=== PATIENT | male | born 1970 | race Caucasian/White ===

== ENCOUNTER → 2016-11-15 | Outpatient (CLI) | payer MEDICARE, OTHER ==
--- NOTE | 2016-11-16 07:05 | US ---
EXAMINATION TYPE: US kidneys/renal and bladder DATE OF EXAM: 11/15/2016 COMPARISON: NONE CLINICAL HISTORY: R31.9 Hematuria. EXAM MEASUREMENTS: Right Kidney: 12.7 x 6.2 x 5.8 cm Left Kidney: 12.8 x 5.7 x 5.4 cm Right Kidney: wnl Left Kidney: 2.4 x 2.2 x 2.4cm, simple appearing cyst. Bladder: wnl Neither ureteral jet was visualized. The right kidney is within normal limits. There is a 2.4 cm, simple appearing cyst in the left kidney . The bladder is unremarkable. Neither ureteral jet seen. IMPRESSION: SIMPLE APPEARING, 2.4 CM LEFT RENAL CYST.
== END | disposition home or self-care (01) ==
LOC: RADUSWWP 15:39
PROVIDERS: ATTEND Internal Medicine
DX: N28.1 Cyst of kidney, acquired (principal)
CPT/HCPCS: 76770

== ENCOUNTER → 2017-06-09 | Day surgery (SDC) | payer MEDICARE ==
[2017-06-07 15:28] VITALS: BMI 39.9
[~2017-06-09] MED LIST: LACTATED RINGERS 1,000 ML IV SCH; LIDOCAINE 1% 20 ML VIAL (10MG/ML) FOR IV START INTRADERMA PRN; PROPOFOL 10 MG/ML 20 ML VIAL IV ONE
[2017-06-09 10:09] VITALS: RESP 18; TEMP 97
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
--- NOTE | 2017-06-09 11:44 | P.OP ---
Date of Procedure: 06/09/17 Preoperative Diagnosis: GERD GI bleed Postoperative Diagnosis: Antral gastritis Internal and external hemorrhoids Anesthesia: MAC Surgeon: Flaco Richardson Pathology: other (Antrum, esophagus) Condition: stable Disposition: PACU Description of Procedure: Patient's placed on the endoscopy table in the lateral position. He received IV sedation. The gastroscope placed oropharynx passed in the esophagus and into the stomach. The scope was then placed through the pylorus. First and second portion duodenum appeared normal. The scope was then brought back the antrum this well. A biopsies performed. The scope was unretroflexed and remainder of the stomach appeared normal. The GE junction was at 47 is. There is no evidence of a hiatal hernia. The distal esophagus appeared minimally inflamed a biopsies performed. The proximal esophagus. Normal. Next digital rectal exam was performed which revealed internal and external hemorrhoids. Flexible colonoscope was then placed patient anus and passed throughout the entire colon. The ileocecal valve was visualized. Cecum, ascending transverse and descending and sigmoid colon appeared normal. Scope was then brought back the rectum and this appeared normal. Scope was then withdrawn from patient. In the internal and external hemorrhoids were noted. Scope was withdrawn for patient.
[2017-06-09 12:15] VITALS: BP 137/96; PULSE 82
== END ==
LOC: ORWHC2ENDO 09:44
PROVIDERS: ATTEND Surgery
DX: K29.50 Unspecified chronic gastritis without bleeding (principal); K21.0 Gastro-esophageal reflux disease with esophagitis; K64.8 Other hemorrhoids; K64.4 Residual hemorrhoidal skin tags; I10 Essential (primary) hypertension; E11.9 Type 2 diabetes mellitus without complications; Z79.84 Long term (current) use of oral hypoglycemic drugs; Z79.891 Long term (current) use of opiate analgesic; Z79.899 Other long term (current) drug therapy; Z88.7 Allergy status to serum and vaccine; Z91.018 Allergy to other foods
CPT/HCPCS: 88305; 88342; 45378; 43239; J2704

== ENCOUNTER 2017-06-11 18:13 | Emergency (ER) | payer MEDICARE ==
[2017-06-11 18:19] VITALS: BP 145/84; PULSE 118; RESP 20; TEMP 98.1
[2017-06-11] MEDS ORDERED: KETOROLAC 30 MG/ML 1 ML VIAL IM STA (19:04)
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
== END 2017-06-11 19:14 | disposition home or self-care (01) ==
LOC: EC 18:13
DX: K64.4 Residual hemorrhoidal skin tags (principal); K64.8 Other hemorrhoids; E11.9 Type 2 diabetes mellitus without complications; I10 Essential (primary) hypertension; Z79.84 Long term (current) use of oral hypoglycemic drugs; Z79.899 Other long term (current) drug therapy; Z91.018 Allergy to other foods
CPT/HCPCS: 99283; 96372; J1885

== ENCOUNTER → 2017-07-27 | Outpatient (CLI) | payer MEDICARE | END | disposition home or self-care (01) | LOC: LABPAT 16:47 | PROVIDERS: ATTEND Orthopaedic Surgery Hand Surgery | DX: Z01.810 Encounter for preprocedural cardiovascular examination (principal); I10 Essential (primary) hypertension; G56.02 Carpal tunnel syndrome, left upper limb | CPT/HCPCS: 93005 ==

== ENCOUNTER 2017-08-01 10:51 | Day surgery (SDC) | payer MEDICARE ==
[2017-07-27 15:25] VITALS: BMI 42.2
[~2017-08-01 10:51] MED LIST changes: +DEXAMETHASONE SOD PHOSPHATE 10 MG/ML 1 ML VIAL IV ONE; +MORPHINE SULFATE 2 MG/ML SYRINGE IV PRN; -PROPOFOL 10 MG/ML 20 ML VIAL IV ONE; +Pre Op ABX Message 1 EACH MISC MISCELLANE ONE
[2017-08-01 11:34] VITALS: RESP 16; TEMP 98.1
[2017-08-01 11:37] LABS: Glucose,Whole Blood 144 mg/dL (75-99)
[2017-08-01] MEDS ORDERED: MIDAZOLAM 2 MG/2 ML VIAL ONE (12:31)
[2017-08-01] MEDS ORDERED: fentaNYL (PF) 50 MCG/ML 2 ML AMP ONE (12:31)
[2017-08-01] MEDS ORDERED: PROPOFOL 10 MG/ML 20 ML VIAL IV ONE (12:31)
[2017-08-01] MEDS ORDERED: BUPIVACAINE (PF) 0.5% 30 ML VIAL SQ ONE (12:41)
[2017-08-01] MEDS ORDERED: LIDOCAINE 1% (PF) 10MG/ML VIAL SQ ONE (12:41)
[2017-08-01 12:58] VITALS: BP 124/69; PULSE 83
--- NOTE | 2017-08-02 10:09 | OP ---
OPERATIVE REPORT DATE OF SERVICE: 08/01/2017. PREOPERATIVE DIAGNOSIS: Left carpal tunnel syndrome. POSTOPERATIVE DIAGNOSIS: Left carpal tunnel syndrome. PROCEDURE: Left carpal tunnel release. DESCRIPTION OF PROCEDURE: The patient was taken to the Operative Suite where a sedation was administered by the Department of Anesthesia. I then performed a local injection along the line of the incision with a combination of Marcaine and Xylocaine both without epinephrine. The hand was then prepped and draped in the usual manner. The arm was elevated, exsanguinated and the cuff was inflated to 250 mm of mercury. A longitudinal incision was made along the ring finger ray distal to the wrist crease. Dissection was taken through the skin and subcutaneous tissue, initially sharp through the skin and then blunt through the subcutaneous tissue to ensure protection of any potential terminal transverse branches of the palmar cutaneous nerve. The palmar fascia was then incised under direct vision longitudinally exposing the transverse carpal ligament. The transverse carpal ligament also was incised under direct vision. The dissection was then continued proximally beneath the skin under direct vision to release the distal forearm fascia. The median nerve was then reflected free of tenosynovium to ensure no adhesions. The tourniquet was then released. The wound was then irrigated and the skin was closed with a running 5-0 nylon suture. A soft bulky dressing was applied including a volar plaster splint holding the wrist in a neutral slightly extended position. The patient was then taken to the Recovery Room in satisfactory condition. MARIA GUADALUPEL / IJN: [id number] /
== END 2017-08-01 13:51 | disposition home or self-care (01) ==
LOC: OR 10:51
PROVIDERS: ATTEND Orthopaedic Surgery Hand Surgery
DX: G56.02 Carpal tunnel syndrome, left upper limb (principal); I10 Essential (primary) hypertension; E10.9 Type 1 diabetes mellitus without complications; Z79.84 Long term (current) use of oral hypoglycemic drugs; Z79.891 Long term (current) use of opiate analgesic; Z79.899 Other long term (current) drug therapy; G47.33 Obstructive sleep apnea (adult) (pediatric); Z79.1 Long term (current) use of non-steroidal anti-inflammatories (NSAID); Z88.7 Allergy status to serum and vaccine
CPT/HCPCS: 64721; J2250; J3010; J2001; J2704

== ENCOUNTER → 2020-06-10 | Outpatient (CLI) | payer MEDICARE | END | disposition home or self-care (01) | LOC: LABWHC1 13:26 | PROVIDERS: ATTEND Surgery | DX: Z01.818 Encounter for other preprocedural examination (principal); U07.1 COVID-19; K42.9 Umbilical hernia without obstruction or gangrene; D17.9 Benign lipomatous neoplasm, unspecified | CPT/HCPCS: 93005; U0003; C9803; U0005; 86850; 86900; 86901 ==

== ENCOUNTER 2020-06-17 07:49 | Day surgery (SDC) | payer MEDICARE ==
[2020-06-10 15:19] VITALS: BMI 39.1
[~2020-06-17 07:49] MED LIST changes: -DEXAMETHASONE SOD PHOSPHATE 10 MG/ML 1 ML VIAL IV ONE; +DEXAMETHASONE SOD PHOSPHATE 4 MG/ML 1 ML VIAL IV ONE; +HEPARIN SODIUM,PORCINE 5,000 UNIT/ML 1 ML VIAL SQ PRN; +LIDOCAINE 1% (10MG/ML) FOR IV START INTRADERMA PRN; -LIDOCAINE 1% 20 ML VIAL (10MG/ML) FOR IV START INTRADERMA PRN; +MIDAZOLAM 2 MG/2 ML VIAL IV PRN; -MORPHINE SULFATE 2 MG/ML SYRINGE IV PRN; -Pre Op ABX Message 1 EACH MISC MISCELLANE ONE; +ceFAZolin 3 GM in SODIUM CHLORIDE 0.9% 100 ML IVPB PRN
[2020-06-17 08:24] LABS: Glucose,Whole Blood 116 mg/dL (75-99)
[2020-06-17] MEDS: ONDANSETRON 4 MG/2 ML VIAL IVP ONE ×2 (08:35→11:54)
[2020-06-17] MEDS ORDERED: fentaNYL (PF) 50 MCG/ML 2 ML AMP IV ONE (08:58)
[2020-06-17] MEDS ORDERED: MIDAZOLAM 2 MG/2 ML VIAL IV ONE (08:58)
--- NOTE | 2020-06-17 09:20 | P.ANPRN ---
Procedure Note - Anesthesia - Nerve Block Performed Bilateral Rectus Abdominis Single Time Out Performed: Yes Date of Procedure: 06/17/20 Procedure Start Time: 08:57 Procedure Stop Time: 09:09 Location of Patient: PreOp Indication: Requested by Surgeon Specifically requested for management of pain by DrLeonardo: Andrade French Sedation Type: Sedate with meaningful contact maintained Preparation: Sterile Prep Position: Supine Needle Types: Pajunk Needle Gauge: 21 Ultrasound used to visualize needle placement: Yes Ultrasound used to observe medication spread: Yes Injectate: 0.5% Ropivacaine (see comment for volume) (20 ml per side plus Dexamethasone 4 mg per side) Blood Aspirated: No Pain Paresthesia on Injection Noted: No Resistance on Injection: Normal Image Stored and Saved: Yes Events: Uneventful and Well Tolerated
[2020-06-17] MEDS ORDERED: GLYCOPYRROLATE 0.2 MG/ML 2 ML VIAL ONE (10:17)
[2020-06-17] MEDS ORDERED: NEOSTIGMINE 1 MG/ML 10 ML VIAL ONE (10:17)
[2020-06-17] MEDS ORDERED: ROCURONIUM 10 MG/ML (10 ML VIAL) IV ONE (10:17)
[2020-06-17] MEDS ORDERED: SUCCINYLCHOLINE CHLORIDE VIAL 200 MG/10 ML VIAL IV ONE (10:17)
[2020-06-17] MEDS ORDERED: PROPOFOL 10 MG/ML 20 ML VIAL IV ONE (10:17)
[2020-06-17] MEDS ORDERED: ROPIVACAINE 5 MG/ML 30 ML VIAL ONE (10:17)
[2020-06-17] MEDS ORDERED: fentaNYL (PF) 50 MCG/ML 2 ML AMP ONE (10:17)
[2020-06-17] MEDS ORDERED: DEXAMETHASONE SOD PHOSPHATE 4 MG/ML 1 ML VIAL ONE (10:17)
[2020-06-17] MEDS ORDERED: LIDOCAINE 1% INJ 10MG/ML (20 ML MDV) ONE (10:17)
[2020-06-17] MEDS ORDERED: KETOROLAC 15 MG/ML 1 ML VIAL ONE (10:17)
[2020-06-17] MEDS ORDERED: MIDAZOLAM 2 MG/2 ML VIAL ONE (10:17)
[2020-06-17] MEDS ORDERED: LIDOCAINE 1%-EPI 1:100,000 20 ML VIAL SQ ONE ×2 (10:43)
[2020-06-17] MEDS ORDERED: LACTATED RINGERS 1,000 ML IV ONE (11:00)
--- NOTE | 2020-06-17 11:28 | P.OP ---
Date of Procedure: 06/17/20 Preoperative Diagnosis: Umbilical hernia Postoperative Diagnosis: Umbilical hernia Procedure(s) Performed: Umbilical hernia repair with mesh, robotic Anesthesia: KHOA Surgeon: Andrade French Pathology: other (Hernia sac) Condition: stable Disposition: same day Indications for Procedure: 50-year-old male presents for elective hernia repair. He is noted to have an umbilical hernia that has begun causing symptoms. Secondary to this, plan is for robotic umbilical hernia repair. Risks, benefits and alternatives were provided to the patient. He did provide consent prior to attending the operating suite. Operative Findings: 2.5 cm umbilical hernia defect Description of Procedure: The patient was brought to the operating suite and placed in supine position. Gen. anesthesia with endotracheal intubation was performed as per anesthesia team. The right arm was tucked against the body and a footboard was applied. Patient was prepped and draped in regular sterile fashion. A timeout was performed to verify correct patient and correct procedure. Patient was confirmed to receive perioperative IV antibiotics, bilateral SCDs and 5000 units of subcutaneous heparin for VT prophylaxis. A 5 mm skin incision was made along the left midaxillary line at pal[place] point and the abdomen was entered under direct visualization using a Visiport. Pneumoperitoneum was achieved. The umbilical hernia was clearly visualized. An additional 8 mm trocar was placed in the left lower abdomen and a 12 mm trocar was placed in the left mid abdomen. The initial 5 mm trocar was upsized to an 8 mm trocar. The da [place] robot was undocked. A 30 robotic camera was used. A robotic prograsp and monopolar scissors were inserted through the 8 mm robotic trochars. The hernia defect contained preperitoneal fat and omentum which were reduced using gentle traction and countertraction method. The falciform ligament was divided using monopolar scissors close to the anterior abdominal wall to create a landing zone for the mesh. A [employer] system circular mesh was rolled and introduced in the abdominal cavity via the 12 mm trocar. The hernia defect was closed primarily with a running suture using OB lock by taking 1 cm bite on the fascia on either side of the defect. A Gaudencio Madrigal device was inserted through the middle of the hernia defect and the stay suture on the mesh was grasped to elevate the mesh against the anterior abdominal wall. The balloon was then inflated. The mesh was circumferentially sutured to the peritoneum of the anterior abdominal wall using 2 OB lock without any folds or kinks. The robot was then undocked. Laparoscopic 30 camera was reinserted. All trocar sites were examined. No evidence of bleeding. The 12 mm trocar site was closed using 2 transseptal sutures of 0 Vicryl which were placed using a Gaudencio Madrigal device. The pneumoperitoneum was evacuated and all skin incisions were closed using 4-0 Monocryl followed by Dermabond skin glue. The sponge, instrument and needle count were correct 2. Abdominal binder was applied. The patient was extubated and taken to postanesthesia care unit in stable condition.
[2020-06-17] MEDS: HYDROmorphone 0.5 MG/0.5 ML SYRINGE IVP PRN ×4 (11:47→12:04)
[2020-06-17 11:51] VITALS: TEMP 97.6
[2020-06-17 11:59] LABS: Glucose,Whole Blood 205 mg/dL (75-99)
[2020-06-17] MEDS: fentaNYL (PF) 50 MCG/ML 2 ML AMP IV PRN ×2 (12:09→12:14)
[2020-06-17 12:13] VITALS: RESP 16
[2020-06-17 13:04] LABS: Glucose,Whole Blood 169 mg/dL (75-99)
[2020-06-17] MEDS ORDERED: HYDROcodone/APAP 10-325MG 1 EACH TAB ONE (13:11)
[2020-06-17] MEDS ORDERED: HYDROcodone/APAP 10-325MG 1 EACH TAB PO ONE (13:20)
[2020-06-17 14:04] VITALS: BP 127/65; PULSE 97
== END 2020-06-17 14:31 | disposition home or self-care (01) ==
LOC: OR 07:49
PROVIDERS: ATTEND Surgery
DX: K42.9 Umbilical hernia without obstruction or gangrene (principal); D17.9 Benign lipomatous neoplasm, unspecified; E11.9 Type 2 diabetes mellitus without complications; I10 Essential (primary) hypertension; G47.33 Obstructive sleep apnea (adult) (pediatric); G89.29 Other chronic pain; M54.9 Dorsalgia, unspecified; E78.5 Hyperlipidemia, unspecified; Z98.890 Other specified postprocedural states; Z87.442 Personal history of urinary calculi; Z82.49 Family history of ischemic heart disease and other diseases of the circulatory system; Z81.8 Family history of other mental and behavioral disorders
CPT/HCPCS: 64488; 86900; 86901; 86850; 49652; C1781; J2250; J1644; J1100; J0690; J2405; J3010; J1170; 88302

== ENCOUNTER 2021-06-28 20:17 | Observation (INO) | payer MEDICARE ==
[2021-06-28] MEDS ORDERED: GLUCAGON 1 MG/ML VIAL IVP STA (20:48)
[2021-06-28] MEDS ORDERED: METOCLOPRAMIDE 5 MG/ML 2 ML VIAL IVP STA (20:48)
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
--- NOTE | 2021-06-28 21:25 | XR ---
EXAMINATION TYPE: XR soft tissue neck DATE OF EXAM: 06/28/2021 COMPARISON: NONE HISTORY: Foreign body TECHNIQUE: 2 views FINDINGS: Epiglottis is normal. Subglottic trachea appears normal. There is no evidence of radiopaque foreign body. Adenoids appear normal. Cervical vertebra show some degenerative spurring at C5-6. IMPRESSION: Negative cervical soft tissue exam.
[2021-06-28] MEDS ORDERED: DIAZEPAM 5 MG/ML 2 ML INJ IVP STA (21:42)
[2021-06-29] MEDS ORDERED: NALOXONE 0.4 MG/ML 1 ML VIAL IV PRN (00:31)
[2021-06-29] MEDS ORDERED: SODIUM CHLORIDE 0.9% 1,000 ML IV SCH (00:45)
[2021-06-29] MEDS: DIAZEPAM 5 MG/ML 2 ML INJ IVP SCH ×3 (01:58→17:12)
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
[2021-06-29 07:58] LABS: Glucose,Whole Blood 140 mg/dL (75-99)
[2021-06-29] MEDS: METOCLOPRAMIDE 5 MG/ML 2 ML VIAL IVP SCH ×2 (08:00→17:12)
[2021-06-29] MEDS: HEPARIN SODIUM,PORCINE/PF 5,000 UNIT/0.5 ML SYRINGE SQ SCH ×2 (08:00→17:13)
[2021-06-29] MEDS: INSULIN ASPART (NovoLOG) 100 UNIT/ML VIAL SQ SCH ×2 (08:54→17:13)
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
[2021-06-29 12:00] LABS: Glucose,Whole Blood 118 mg/dL (75-99)
[2021-06-29 12:01] LABS: HCT 51.3 % (39.0-53.0); HGB 16.9 gm/dL (13.0-17.5); MCH 29.8 pg (25.0-35.0); MCHC 32.9 g/dL (31.0-37.0); MCV 90.7 fL (80.0-100.0); Mean Platelet Volume 8.2; Platelet Count 198 k/uL (150-450); RBC 5.66 m/uL (4.30-5.90); WBC 9.3 k/uL (3.8-10.6)
[2021-06-29 12:10] LABS: African American GFR (CKD) >90 (>60 ml/min/1.73 sqM); Anion Gap 7 mmol/L; Blood Urea Nitrogen 16 mg/dL (9-20); Calcium 9.3 mg/dL (8.4-10.2); Carbon Dioxide 28 mmol/L (22-30); Chloride 104 mmol/L (98-107); Glucose 139 mg/dL (74-99); Non-African American GFR(CKD) >90 (>60 ml/min/1.73 sqM); Potassium 4.6 mmol/L (3.5-5.1); Sodium 139 mmol/L (137-145)
[2021-06-29] MEDS ORDERED: IV FLUID CONTINUATION 1,000 ML IV ONE ×2 (13:52)
[2021-06-29] MEDS ORDERED: MIDAZOLAM 2 MG/2 ML VIAL ONE (14:13)
[2021-06-29] MEDS ORDERED: LIDOCAINE 1% INJ 10MG/ML (20 ML MDV) ONE (14:13)
[2021-06-29] MEDS ORDERED: fentaNYL (PF) 50 MCG/ML 2 ML AMP ONE (14:13)
[2021-06-29] MEDS ORDERED: PROPOFOL 10 MG/ML 20 ML VIAL IV ONE (14:13)
[2021-06-29] MEDS ORDERED: SUCCINYLCHOLINE CHLORIDE 100 MG/5 ML SYR IV ONE (14:13)
--- NOTE | 2021-06-29 14:57 | P.PCN ---
Date of Procedure: 06/29/21 Implants: BRIEF HISTORY: Patient is a 51-year-old, pleasant, white male admitted hospital last night after presenting with acute food impaction. He never and the symptoms in the past. However he is been having intermittent dysphagia to solids for the last few years. He denies any heartburn. PROCEDURE PERFORMED: Esophagogastroduodenoscopy with foreign body removal and biopsy. PREOPERATIVE DIAGNOSIS: Acute food impaction. Anesthesia general anesthesia PROCEDURE: After informed consent was obtained, the patient was brought into the endoscopy unit. IV sedation was administered by Anesthesia under continuous monitoring. Initially the Olympus GIF-140 video endoscope was inserted into the mouth. Esophagus intubated without any difficulty. It was gradually advanced into the distal esophagus and there was a large piece of meat that was impacted in the distal esophagus. Gentle using a snare, rat-tooth and tripod the piece of meat was removed and small pieces and subsequently the rest of it was pushed into the stomach. The scope was advanced into the duodenum and carefully examined. The bulb and the second part of the duodenum appeared normal. The scope at this time was withdrawn to the stomach, adequately insufflated with air, and upon careful examination, mucosa of the antrum, body, cardia and the fundus appeared normal. The scope was then withdrawn into the esophagus. The GE junction was located at 39 cm from the incisors. small hiatal hernia noted. Then the length of esophagus had thickened esophageal folds with multiple mucosal rings and slight narrowing of the esophagus especially in the distal esophagus consistent with the use of esophagitis and multiple biopsies were done from this area. The patient tolerated the procedure well. . IMPRESSION: 1. Large piece of meat lost in the distal esophagus status post removal with snare, tripod and rectum. 2. Multiple superficial mucosal rings with thickened esophageal folds and esophagus stricture in the mid and distal esophagus consistent with years of age esophagitis status post multiple biopsies. RECOMMENDATIONS: The findings of this examination were discussed with the patient . He was started on clear liquid diet today. He was tolerating well he can be discharged home today with outpatient follow-up in one to 2 weeks. He'll be started on Prilosec 20 mg twice daily..
[2021-06-29 16:05] VITALS: TEMP 97.8
[2021-06-29 17:04] VITALS: PULSE 84; RESP 16
--- NOTE | 2021-06-29 17:12 | P.DS ---
Providers Date of admission: 06/29/21 00:30 Expected date of discharge: 06/29/21 Attending physician: Nichelle Frost MD Consults: 06/29/21 00:31 Consult Physician Routine Consulting Provider: Camila Martínez Consult Reason/Comments: esophageal obstruction; food bolus Do you want consulting provider notified?: Yes Primary care physician: Manjinder Zhong Hospital Course: Discharge Diagnosis: Food bolus impaction Esophageal superficial mucosal rings with stricture in the mid and distal esophagus Diabetes mellitus type 2 Hypertension Hospital Course: Patient is a 51 YO CM with a hx of HTN, DM II, Hemorrhoids, and spinal stenosis who presented after feeling like he had food stuck in his esophagus. He stated he had been eating roast beef and feels as though it didn't go down. He was unable to control his secretions. In the ER he underwent a neck x-ray which was negative. They tried Valium and glucagon as well as Reglan without relief. He was admitted for further monitoring and GI consultation. He underwent removal of fluid bolus. EGD with GI on 06/29. He was found to have esophageal stricturing/rings and possible eosinophilic esophagitis. He tolerated the procedure well and was able to tolerate a full liquid diet. He was determined stable for discharge home. He will be on Prilosec 20 mg twice daily. He does have biopsy results which are pending. He will follow-up with Dr. Martínez on 08/27/21 at 1:30 pm. He'll follow with Dr. Zhong in 1-2 days. Patient seen and examined at bedside. No chest pain or shortness of breath. Has not had this before. Has been unable to control secretions due to food bolus. Vital signs reviewed and stable. General: non toxic, no distress, appears at stated age Derm: warm, dry Head: atraumatic, normocephalic, symmetric Eyes: EOMI, no lid lag, anicteric sclera Mouth: no lip lesion, mucus membranes moist Cardiovascular: S1S2 reg, no murmur, positive posterior tibial pulse bilateral, Lungs: Decreased bs bilateral, no rhonchi, no rales , no accessory muscle use Abdominal: soft, nontender to palpation, no guarding, no appreciable organomegaly Ext: no gross muscle atrophy, no edema, no contractures Neuro: CN II-XI grossly intact, no focal neuro deficits Psych: Alert, oriented, appropriate affect A total of 27 minutes of time were spent preparing this complex discharge summary . Patient Condition at Discharge: Stable Plan - Discharge Summary Discharge Rx Participant: No New Discharge Prescriptions: New Omeprazole [PriLOSEC] 20 mg PO AC-BID #60 cap Continue lisinopriL [Zestril] 5 mg PO DAILY metFORMIN HCL [Glucophage] 1,000 mg PO BID Liraglutide [Victoza 2-Dalton] 1.8 mg SQ DAILY Atorvastatin [Lipitor] 10 mg PO DAILY Empagliflozin [Jardiance] 25 mg PO DAILY HYDROcodone/APAP 10-325MG [[place] 10-325] 1 tab PO QID EPINEPHrine (Auto Inject) [Epipen] 0.3 mg IM ONCE PRN PRN Reason: Anaphylaxis Multivitamins, Thera [Multivitamin (formulary)] 1 tab PO DAILY Discharge Medication List lisinopriL [Zestril] 5 mg PO DAILY 06/07/17 [History] Atorvastatin [Lipitor] 10 mg PO DAILY 06/10/20 [History] Empagliflozin [Jardiance] 25 mg PO DAILY 06/10/20 [History] Liraglutide [Victoza 2-Dalton] 1.8 mg SQ DAILY 06/10/20 [History] metFORMIN HCL [Glucophage] 1,000 mg PO BID 06/10/20 [History] EPINEPHrine (Auto Inject) [Epipen] 0.3 mg IM ONCE PRN 06/28/21 [History] HYDROcodone/APAP 10-325MG [[place] 10-325] 1 tab PO QID 06/28/21 [History] Multivitamins, Thera [Multivitamin (formulary)] 1 tab PO DAILY 06/28/21 [History] Omeprazole [PriLOSEC] 20 mg PO AC-BID #60 cap 06/29/21 [Rx] Follow up Appointment(s)/Referral(s): Camila Martínez MD [STAFF PHYSICIAN] - 08/27/21 1:30 pm (Office is putting patient on the cancellation list, they will call if there's a sooner appointment . ) Manjinder Zhong [Primary Care Provider] - 1-2 days Patient Instructions/Handouts: Esophagitis (DC) Activity/Diet/Wound Care/Special Instructions: Activity: as tolerated Diet: full liquid today, soft and bland diet for 2 days, and then resume regular diet. Special Instructions: Chew all food well. Keep follow-up with Dr. Martínez Discharge Disposition: HOME SELF-CARE
[2021-06-29 17:36] VITALS: BP 122/82
[2021-06-29 17:46] LABS: Glucose,Whole Blood 153 mg/dL (75-99)
== END 2021-06-29 18:34 | disposition home or self-care (01) ==
LOC: EC 20:17 → 6NMEDSUR 06-29 00:30
PROVIDERS: ADMIT Internal Medicine; ATTEND Internal Medicine
DX: T18.128A Food in esophagus causing other injury, initial encounter (principal); E11.9 Type 2 diabetes mellitus without complications; I10 Essential (primary) hypertension; G47.30 Sleep apnea, unspecified; M48.00 Spinal stenosis, site unspecified; K20.90 Esophagitis, unspecified without bleeding; R11.10 Vomiting, unspecified; K44.9 Diaphragmatic hernia without obstruction or gangrene; K64.9 Unspecified hemorrhoids; E66.9 Obesity, unspecified; Z68.38 Body mass index [BMI] 38.0-38.9, adult; Z20.822 Contact with and (suspected) exposure to COVID-19; Z79.899 Other long term (current) drug therapy; Z79.84 Long term (current) use of oral hypoglycemic drugs; Z79.891 Long term (current) use of opiate analgesic; Z91.018 Allergy to other foods; Z84.89 Family history of other specified conditions; Z82.49 Family history of ischemic heart disease and other diseases of the circulatory system; Z80.9 Family history of malignant neoplasm, unspecified
CPT/HCPCS: 96376; 96372; 96374; 96375; 99284; 88305; 80048; 85027; 83036; 87635; 70360; 43239; 43247; G0378; J2250; J1610; J2765 ×2; J3360 ×2; J2001; J3010; J0330; J2704; J1644

== ENCOUNTER → 2021-11-11 | Outpatient (CLI) | payer MEDICARE ==
--- NOTE | 2021-11-11 13:05 | XR ---
Thoracic spine HISTORY: Pain for 1 month 3 views of the thoracic spine Thoracic vertebral bodies show preserved height, alignment, and bone mineralization. Is multilevel sp ondylosis. Some loss of disc height present at intervertebral levels the midthoracic spine. IMPRESSION: Degenerative disc disease.
== END | disposition home or self-care (01) ==
LOC: RADXRMAIN 07:39
PROVIDERS: ATTEND Family Medicine
DX: M51.34 Other intervertebral disc degeneration, thoracic region (principal)
CPT/HCPCS: 72072

== ENCOUNTER → 2022-04-06 | Outpatient (CLI) | payer MEDICARE ==
--- NOTE | 2022-04-06 10:31 | XR ---
EXAM TYPE: LUMBAR SPINE X RAY SERIES COMPARISON: NONE HISTORY: Pain TECHNIQUE: 4 views are submitted. FINDINGS: Alignment is anatomic. The pedicles are intact. The transverse processes are intact. There is no s pondylolysis or spondylolisthesis. Diffuse osteopenia. There is some facet arthropathy at levels L3- S1. Vascular calcifications noted. IMPRESSION: 1. Multilevel facet arthropathy with diffuse osteopenia. Question foraminal encroachment L5-S1 recomm end follow-up MRI.
== END | disposition home or self-care (01) ==
LOC: RADXRMAIN 09:38
PROVIDERS: ATTEND Obstetrics & Gynecology
DX: M47.27 Other spondylosis with radiculopathy, lumbosacral region (principal); M85.88 Other specified disorders of bone density and structure, other site
CPT/HCPCS: 72110

== ENCOUNTER → 2022-05-31 | Outpatient (CLI) | payer MEDICARE ==
--- NOTE | 2022-05-31 20:59 | MR ---
EXAMINATION TYPE: MR lumbar spine wo con DATE OF EXAM: 05/31/2022 7:46 PM COMPARISON: 04/06/2022. CLINICAL INDICATION:Male, 52 years old with history of M54.16 RADICULOPATHY, LUMBAR REGION; TECHNIQUE: Multi planar, multi sequence imaging was performed utilizing: T1-weighted, T2-weighted, a nd turbo inversion recovery imaging of the lumbar spine. IV Contrast: None. FINDINGS: Alignment: The lumbar vertebral bodies have preserved heights and alignment. Cord: The conus medullaris and the distal spinal cord appear unremarkable with regards to their signa l intensity and morphology. Bones/Discs: L3 vertebral body height T2 high T1 probable vertebral body hemangioma. Multilevel degen erative disc disease is noted and most pronounced at the L4-S1. Disc desiccation at L3-L4 and L4-L5. T12-L1: No evidence of significant spinal canal stenosis or neural foraminal stenosis. L1-L2: No evidence of significant spinal canal stenosis or neural foraminal stenosis. L2-L3: No evidence of significant spinal canal stenosis or neural foraminal stenosis. L3-L4: Abundance of epidural fat with moderate spinal canal narrowing intracranially cauda equina. No evidence of disc bulge. There is mild neural foraminal stenosis secondary to facet joint arthropathy . L4-L5: Abundance of epidural fat with disc bulge and facet joint arthropathy results in severe spinal canal stenosis and cauda equina bunching. There is moderate bilateral neural foraminal stenosis. L5-S1: Abundance of epidural fat with bunching of the cauda equina. Facet joint arthropathy with mild bilateral neural foraminal stenosis Other findings: None. IMPRESSION: 1. Epidural lipomatosis with bunching of the cauda equina extending from L3-L4 and more inferiorly. T his finding in combination with disc bulge and facet joint arthropathy results in L4-L5 severe and mo derate L3-L4 spinal canal stenosis. 2. Mild disc degeneration with associated osteoarthritic changes.
== END | disposition home or self-care (01) ==
LOC: RADMRIMAIN 18:47
PROVIDERS: ATTEND Nurse Practitioner Family
DX: M46.96 Unspecified inflammatory spondylopathy, lumbar region (principal); M47.897 Other spondylosis, lumbosacral region; M51.16 Intervertebral disc disorders with radiculopathy, lumbar region; M47.26 Other spondylosis with radiculopathy, lumbar region; M46.1 Sacroiliitis, not elsewhere classified; M48.02 Spinal stenosis, cervical region; E88.2 Lipomatosis, not elsewhere classified
CPT/HCPCS: 72148

== ENCOUNTER → 2023-03-11 | Outpatient (CLI) | payer MEDICARE ==
--- NOTE | 2023-03-13 08:18 | MR ---
EXAMINATION TYPE: MR shoulder RT wo con DATE OF EXAM: 03/11/2023 COMPARISON: Outside right shoulder x-ray March 04, 2023 HISTORY: Right shoulder pain and limited ROM for 4 months TECHNIQUE: Multiplanar, multisequence imaging of the right shoulder is performed without contrast. FINDINGS: Rotator Cuff: Focal tiny tear at articular surface involving posterior fibers of the supraspinatus te ndon and few of the anterior fibers of infraspinatus tendon. Increased signal in the distal infraspin atus tendon. Tear measures 13 mm AP diameter sagittal image 28 x 4 mm transversely coronal image 13. Rotator cuff muscle bulk is preserved. Subscapularis tendon is intact. Acromioclavicular Joint: Mild to moderate narrowing and capsular hypertrophy at the acromioclavicular joint. Moderate spurring is present. Underlying fat plane is maintained. Glenohumeral Joint: Small joint effusion. No significant spurring. Labrum: The labrum appears grossly intact given limitation of non-arthrogram study. Biceps Tendon: The long head of biceps is in normal location within bicipital groove. Bone marrow signal: No focal abnormal marrow signal is appreciated. Other: No additional significant abnormality is appreciated. IMPRESSION: 1. Partial articular surface tear of the posterior fibers supraspinatus tendon and anterior fibers of infraspinatus tendon. Tendinosis of the distal infraspinatus tendon. 2. Moderate degenerative changes at the acromioclavicular joint.
== END | disposition home or self-care (01) ==
LOC: RADMRIMAIN 20:00
PROVIDERS: ATTEND Orthopaedic Surgery
DX: M19.011 Primary osteoarthritis, right shoulder (principal); M67.813 Other specified disorders of tendon, right shoulder

== ENCOUNTER 2023-04-28 06:07 | Day surgery (SDC) | payer MEDICARE, OTHER ==
--- NOTE | 2023-04-28 00:31 | HP ---
HISTORY AND PHYSICAL DATE OF SURGERY: 04/28/2023. HISTORY OF PRESENT ILLNESS: Jovon Elizabeth is a 52-year-old gentleman, seen with progressive right shoulder pain. Options for treatment were discussed with him. He elected to proceed with right shoulder arthroscopy. Consent was obtained. Medical clearance was provided by Dr. Dave. PAST MEDICAL HISTORY: Hypertension, hyperlipidemia, [id number] diabetes, and gastroesophageal reflux disease. PAST SURGICAL HISTORY: Noncontributory. DAILY MEDICATIONS: 1. Atorvastatin. 2. Hydrocodone. 3. Jardiance. 4. Lisinopril. 5. Metformin. 6. Omeprazole. ALLERGIES: None. SOCIAL HISTORY: Denies tobacco use. PHYSICAL EVALUATION OF THE RIGHT SHOULDER: Flexion is 120 degrees. Abduction is 120 degrees. External rotation is 20 degrees with pain and weakness. Tenderness along the anterolateral acromion and rotator cuff insertion. Impingement is positive at 80. Cross-body adduction sign is positive. Drop-arm sign is positive. Distal neurovascular exam is intact. IMAGING STUDIES: Radiographs of the right shoulder, type 2 acromion and cystic changes of the greater tuberosity. MRI right shoulder, rotator cuff tear and acromioclavicular joint osteoarthritis. IMPRESSION: 1. Right shoulder impingement with rotator cuff tear. 2. Right shoulder acromioclavicular joint osteoarthritis. 3. Hypertension. 4. Hyperlipidemia. 5. [id number] diabetes. 6. Chronic opioid use. PLAN: Right shoulder arthroscopy with subacromial decompression, arthroscopic rotator cuff repair, Phyllis procedure, and debridement. MMODL / IJN: [id number] /
[2023-04-28] MEDS ORDERED: DEXAMETHASONE SOD PHOSPHATE 4 MG/ML 1 ML VIAL IV ONE (07:04)
[2023-04-28] MEDS ORDERED: ONDANSETRON 4 MG/2 ML VIAL IVP ONE (07:04)
[2023-04-28] MEDS ORDERED: HYDROmorphone 0.5 MG/0.5 ML SYRINGE IVP PRN (07:04)
[2023-04-28] MEDS ORDERED: LACTATED RINGERS 1,000 ML IV SCH (07:04)
[2023-04-28 07:30] LABS: Glucose,Whole Blood 134 mg/dL (70-110)
[2023-04-28] MEDS ORDERED: fentaNYL (PF) 50 MCG/ML 2 ML AMP IVP ONE (08:27)
[2023-04-28] MEDS ORDERED: MIDAZOLAM 2 MG/2 ML VIAL IVP ONE (08:27)
[2023-04-28] MEDS ORDERED: ROPIVACAINE 5 MG/ML 30 ML VIAL ONE (08:33)
[2023-04-28] MEDS ORDERED: DEXAMETHASONE SOD PHOSPHATE 4 MG/ML 1 ML VIAL ONE (08:33)
[2023-04-28] MEDS ORDERED: NEOSTIGMINE 1 MG/ML 10 ML VIAL ONE (08:33)
[2023-04-28] MEDS ORDERED: PROPOFOL 10 MG/ML 20 ML VIAL IV ONE (08:33)
[2023-04-28] MEDS ORDERED: GLYCOPYRROLATE 0.2 MG/ML 2 ML VIAL ONE (08:33)
[2023-04-28] MEDS ORDERED: SUCCINYLCHOLINE CHLORIDE 200 MG/10 ML VIAL IV ONE (08:33)
[2023-04-28] MEDS ORDERED: KETOROLAC 30 MG/ML 1 ML VIAL ONE (08:33)
[2023-04-28] MEDS ORDERED: ROCURONIUM 10 MG/ML (5 ML VIAL) IV ONE (08:33)
[2023-04-28] MEDS ORDERED: fentaNYL (PF) 50 MCG/ML 2 ML AMP ONE (08:33)
[2023-04-28] MEDS ORDERED: LIDOCAINE 1% INJ 10MG/ML (20 ML MDV) ONE (08:33)
[2023-04-28] MEDS ORDERED: PHENYLEPHRINE-0.9% NACL SYG 1,000 MCG/10 ML SYRINGE ONE (08:33)
[2023-04-28] MEDS ORDERED: LACTATED RINGERS 1,000 ML IV ONE (09:53)
--- NOTE | 2023-04-28 10:14 | P.OP ---
Date of Procedure: 04/28/23 Preoperative Diagnosis: Right shoulder impingement Postoperative Diagnosis: 1. Right shoulder rotator cuff tear 2. Right shoulder bicipital tendinitis 3. Right shoulder impingement 4. Right shoulder acromioclavicular joint osteoarthritis 5. Right shoulder superficial labral tear Procedure(s) Performed: 1. Right shoulder arthroscopic rotator cuff repair 2. Right shoulder arthroscopic biceps tenodesis 3. Right shoulder arthroscopic subacromial decompression 4. Right shoulder arthroscopic Phyllis procedure 5. Right shoulder arthroscopic debridement labral tear Implants: 2Arthrex 4.75 swivel lock anchors Anesthesia: GETA, regional (Interscalene block) Surgeon: Chapo Doss Inbound Sales Consultant #1: Ashish Story Estimated Blood Loss (ml): 12 Pathology: none sent Disposition: PACU Indications for Procedure: 52-year-old gentleman seen with progressive right shoulder pain. After treatment options were discussed, he elected to proceed with arthroscopy. Operative Findings: see description of procedure Description of Procedure: Patient underwent an interscalene block by department of anesthesia. The patient was then taken to the operative suite. The patient underwent a general anesthetic by the department of anesthesia. The patient was placed into a lateral position and secured. There was appropriate padding of the bony prominence. Right shoulder was then prepped and draped in normal sterile orthopedic fashion. We placed the extremity in 10 pounds of longitudinal traction. A posterior incision was now made for a posterior working portal site. The trocar and cannula were inserted into the glenohumeral joint. Arthroscopy was initiated. Spinal needle was now inserted anteriorly, to ascertain the anterior working portal site. An incision was now made in that area, a trocar was inserted followed by a probe. There was superficial tearing of the anterior labrum. There were some grade 1 chondromalacia changes of the anterior glenoid. There was bicipital tendinitis some partial tearing long head biceps tendon. I debrided out the superficial labral tear getting down to stable labral tissue. I decided to proceed with a arthroscopic tenodesis. I inserted a cannula through my anterior portal site. I performed a loop and tack stitch through the biceps tendon. I now released the biceps tendon from the superior labrum. With the assistance of Ashish SANCHEZ Puncture hole at the interval for insertion of an anchor. The suture was passed through the eyelet of Arthrex 4.75 swivel lock anchor. I placed the eyelet into our pre-punch hole. I held it in position while Ashish SANCHEZ tensioned the suture and deployed the anchor with good fixation. Residual suture was now clipped. We had excellent biceps tenodesis. Instruments removed from the glenohumeral joint. Utilizing the posterior working portal site, the trocar and cannula were inserted into the subacromial space. Arthroscopy initiated. I made an incision 2 fingerbreadths lateral to the acromion. I introduced my trocar followed by my ArthroCare ablator. I now began ablating thick subacromial bursal tissue, which exposed the undersurface of the anterior acromion. There was diminished subacromial space. There was a very prominent anterior acromion. A motorized bur was introduced and a subacromial decompression was performed. I also excised some osteophytes off the inferior aspect of the distal clavicle. The AC joint was visualized and noted to be fairly arthritic. The motorized bur was introduced in the anterior portal site and a Phyllis procedure was performed without difficulty, decompressing the AC joint nicely. I turned my attention to the rotator cuff. There was a 1 cm rotator cuff tear. I debrided the margins getting down to stable tendon tissue. The defect measured 1.5 cm but was freely mobile over the footprint. I introduced my motorized bur and abraded the footprint area, getting some petechial bleeding. I now passed 3 everted mattress sutures through good bites of rotator cuff tendon with the assistance of Ashish SANCHEZ. I punched the hole and the footprint area for insertion of an anchor. All 6 limbs of suture were passed through the eyelet of a Arthrex 4.75 swivel lock anchor. I placed the eyelet into the prepunched hole. I held in position while Ashish SANCHEZ tensioned all 6 limbs of suture and deployed the anchor with good fixation noted. All residual suture limbs were now clipped. We had good compression of the tendon along the entire footprint. Instruments now removed from the portal sites. All portal sites were approximated with nylon suture. Sterile dressings were applied followed by a shoulder sling. Ashish SANCHEZ assisted in this complex case. The patient was awakened, transferred to a bed, and taken to recovery in stable condition.
[2023-04-28 10:23] VITALS: TEMP 97
[2023-04-28 11:54] VITALS: RESP 16
[2023-04-28 12:16] VITALS: BP 122/80; PULSE 82
--- NOTE | 2023-04-28 13:33 | P.ANPRN ---
Procedure Note - Anesthesia - Nerve Block Performed Right Interscalene Single Time Out Performed: Yes ([id number]) Date of Procedure: 04/28/23 Procedure Start Time: Procedure Stop Time: Location of Patient: PreOp Indication: Acute Post-Operative Pain, Requested by Surgeon Specifically requested for management of pain by DrLeonardo: Chapo Doss Sedation Type: Sedate with meaningful contact maintained Preparation: Sterile Prep Position: Supine Catheter: None Needle Types: Pajunk Needle Gauge: 21 Ultrasound used to visualize needle placement: Yes Ultrasound used to observe medication spread: Yes Injectate: 0.5% Ropivacaine (see comment for volume) (30cc) Blood Aspirated: No Pain Paresthesia on Injection Noted: No Resistance on Injection: Normal Image Stored and Saved: Yes Events: Uneventful and Well Tolerated
== END 2023-04-28 12:19 | disposition home or self-care (01) ==
LOC: OR 06:07
PROVIDERS: ATTEND Orthopaedic Surgery
DX: M75.101 Unspecified rotator cuff tear or rupture of right shoulder, not specified as traumatic (principal); M75.21 Bicipital tendinitis, right shoulder; M19.011 Primary osteoarthritis, right shoulder; M25.811 Other specified joint disorders, right shoulder; G89.18 Other acute postprocedural pain; I10 Essential (primary) hypertension; I25.2 Old myocardial infarction; I25.10 Atherosclerotic heart disease of native coronary artery without angina pectoris; E78.5 Hyperlipidemia, unspecified; E11.9 Type 2 diabetes mellitus without complications; K21.9 Gastro-esophageal reflux disease without esophagitis; Z79.84 Long term (current) use of oral hypoglycemic drugs; Z79.899 Other long term (current) drug therapy; Z79.891 Long term (current) use of opiate analgesic
CPT/HCPCS: 29828; 29827; 29826; 29824; 64415; C1713 ×3; J2250; J0330; J1100; J2710; J0690; J2405; J2001; J3010; J1885; J2795; J2704; J2371

== ENCOUNTER → 2023-10-12 | Outpatient (CLI) | payer MEDICARE ==
--- NOTE | 2023-10-12 16:40 | XR ---
EXAMINATION TYPE: XR cervical spine limited DATE OF EXAM: 10/12/2023 4:27 PM CLINICAL INDICATION:Male, 53 years old with history of M54.2 CERVICALGIA; [facility] COMPARISON: 06/28/2021 TECHNIQUE: The cervical spine was imaged in frontal, lateral, and odontoid. FINDINGS: Large osteophyte anterior to C5-C6 disc space. The osseous structures show normal alignment without evidence of an acute fracture. There are osteoph ytes noted throughout the cervical spine on the anterior and lateral aspects of the vertebral bodies. The intervertebral disk spaces are narrowed at multiple levels Pedicles are intact. Soft tissues ar e within normal limits. The odontoid appears intact. IMPRESSION: 1. No fracture or dislocation. 2. Mild degenerative disc disease changes of the cervical spine. Large osteophytes extending to the p osterior esophagus at C5-C6.
== END | disposition home or self-care (01) ==
LOC: RADXRMAIN 16:12
PROVIDERS: ATTEND Family Medicine
DX: M54.2 Cervicalgia (principal); M25.78 Osteophyte, vertebrae
CPT/HCPCS: 72040

== ENCOUNTER → 2024-06-25 | Outpatient (CLI) | payer MEDICARE ==
--- NOTE | 2024-06-25 11:39 | MR ---
INDICATION: Patient age:Male; 54 years old; Reason for study: M54.2 cervical pain; PHH. COMPARISON: Cervical spine radiograph 10/12/2023. TECHNIQUE: Multi planar, multi sequence imaging was performed of the cervical spine. No Gadolinium wa s given. FINDINGS: Alignment: The cervical vertebral bodies have preserved heights. Grade 1 anterolisthesis of C4 on C5. Bones: Bone signal is within normal limits. Prominent anterior osteophyte at C5-C6. Cord: The spinal cord is unremarkable with regards to their signal intensity and morphology. Discs: Multilevel disc desiccation is present. Mild disc height loss at C5-C6. C2-C3: No significant disc pathology. The spinal canal is patent. No neural foraminal stenosis. C3-C4: No significant disc pathology. The spinal canal is patent. Is that of facet arthropathy with minimal right neural foraminal narrowing. C4-C5: Tiny central disc protrusion with minimal effacement of the anterior thecal sac. No neural fo raminal stenosis. C5-C6: Posterior disc osteophyte complex with mild effacement of the anterior thecal sac. Uncovertebr al joint hypertrophy with moderate bilateral neuroforaminal stenosis. C6-C7: No significant disc pathology. The spinal canal is patent. No neural foraminal stenosis. C7-T1: No significant disc pathology. The spinal canal is patent. No neural foraminal stenosis. Other: None. IMPRESSION: Multilevel disc degeneration and uncovertebral joint hypertrophy. This is most pronounced at C5-C6 wi th mild central canal stenosis. Moderate bilateral neuroforaminal stenosis secondary to uncovertebral joint hypertrophy at this level. Tiny central disc protrusion with minimal central canal stenosis at C4-C5. [facility], , 06/25/2024 11:37 AM
== END | disposition home or self-care (01) ==
LOC: RADMRIMAIN 10:55
PROVIDERS: ATTEND Orthopaedic Surgery
DX: M47.812 Spondylosis without myelopathy or radiculopathy, cervical region (principal); M48.02 Spinal stenosis, cervical region; M50.221 Other cervical disc displacement at C4-C5 level; M50.30 Other cervical disc degeneration, unspecified cervical region
CPT/HCPCS: 72141

== ENCOUNTER → 2024-11-06 | Outpatient (CLI) | payer MEDICARE ==
--- NOTE | 2024-11-09 07:30 | CT ---
EXAMINATION TYPE: CT cervical spine wo con DATE OF EXAM: 11/06/2024 8:41 AM COMPARISON: None. CLINICAL INDICATION: Male, 54 years old with history of M62.81,M54.2 MUSCLE WEAKNESS (GENERALIZED), P re-surgical., pain TECHNIQUE: CT of the cervical spine is performed in the axial plane at 2 mm thick sections. Reconstr ucted images in the coronal, and sagittal plane are reviewed on the computer. Contrast used: mL of , (none if empty) Oral contrast used: (none if empty) CT DLP: 746.8 mGycm, Automated exposure control for dose reduction was used. FINDINGS: No acute fractures are evident. Vertebral body alignment is normal. C5-6 disc height is narrowed. Anterior vertebral body spurring is present at this level. Some posteri or endplate spurring is present at C5. No AP spinal canal stenosis is present Vertebral body heights are preserved. No spinal canal stenosis is evident Left foraminal stenosis from uncovertebral joint hypertrophy is present C4-5. Bilateral moderate fora bharati narrowing is present C5-6 from uncovertebral joint hypertrophy IMPRESSION: 1. Degenerative disc changes with endplate spurring at C5-6. 2. Foraminal stenosis bilaterally C5-6 and on the left at C4-5 from uncovertebral joint hypertrophy [facility], , 11/09/2024 7:27 AM
== END | disposition home or self-care (01) ==
LOC: RADCTMAIN 07:41
PROVIDERS: ATTEND Orthopaedic Surgery
DX: M47.812 Spondylosis without myelopathy or radiculopathy, cervical region (principal); M62.81 Muscle weakness (generalized); M48.02 Spinal stenosis, cervical region
CPT/HCPCS: 72125

== ENCOUNTER → 2024-11-28 | Outpatient (CLI) | payer MEDICARE | END | disposition home or self-care (01) | LOC: LABWHC1 08:20 | PROVIDERS: ATTEND Orthopaedic Surgery | DX: Z01.812 Encounter for preprocedural laboratory examination (principal); M48.02 Spinal stenosis, cervical region; M50.00 Cervical disc disorder with myelopathy, unspecified cervical region | CPT/HCPCS: 86850; 86900; 86901; 87070 ==

== ENCOUNTER → 2024-11-29 | Outpatient (CLI) | payer MEDICARE ==
[2024-11-29 15:41] LABS: INR 0.97 sec (0.93-1.11); Prothrombin Time 10.9 sec (9.9-11.9)
[2024-11-29 15:56] LABS: Basophils # (A) 0.07 X 10*3/uL (0.00-0.10); Basophils % (A) 1.1 %; Eosinophils # (A) 0.22 X 10*3/uL (0.04-0.35); Eosinophils % (A) 3.5 %; HCT 50.3 % (39.6-50.0); HGB 16.6 g/dL (13.0-17.0); Immature Grans, Automated 0.30 %; Lymphocytes # (A) 1.85 X 10*3/uL (0.90-5.00); Lymphocytes % (A) 29.0 %; MCH 29.1 pg (27.0-32.0); MCHC 33.0 g/dL (32.0-37.0); MCV 88.2 FL (80.0-97.0); Monocytes # (A) 0.62 X 10*3/uL (0.20-1.00); Monocytes % (A) 9.7 %; NRBC Per 100 WBC 0 X 10*3/uL (0.00-0.01); Neutrophils # (A) 3.59 X 10*3/uL (1.80-7.70); Neutrophils % (A) 56.4 %; Platelet Count 192 X 10*3/uL (140-440); RBC 5.70 X 10*6/uL (4.40-5.60); RDW 12.4 % (11.5-14.5); WBC 6.37 X 10*3/uL (4.50-10.00)
[2024-11-29 16:57] LABS: ALT 47 U/L (10-49); AST 35 U/L (14-35); Albumin 4.5 g/dL (3.8-4.9); Albumin/Globulin Ratio 1.55 Ratio (1.60-3.17); Alkaline Phosphatase 118 U/L (41-126); Anion Gap 11.70 mmol/L (4.00-12.00); BUN/Creat Ratio 17.20 Ratio (12.00-20.00); Blood Urea Nitrogen 17.2 mg/dL (9.0-27.0); Calcium 9.5 mg/dL (8.7-10.3); Carbon Dioxide 26.3 mmol/L (21.6-31.8); Chloride 98 mmol/L (96-109); Globulin 2.9 g/dL (1.6-3.3); Glucose 162 mg/dL (70-110); Potassium 4.2 mmol/L (3.5-5.5); Sodium 136 mmol/L (135-145); Total Protein 7.4 g/dL (6.2-8.2)
== END | disposition home or self-care (01) ==
LOC: LABPAT 11:31
PROVIDERS: ATTEND Orthopaedic Surgery
DX: Z01.818 Encounter for other preprocedural examination (principal); I10 Essential (primary) hypertension; M50.00 Cervical disc disorder with myelopathy, unspecified cervical region; M48.02 Spinal stenosis, cervical region; R94.31 Abnormal electrocardiogram [ECG] [EKG]
CPT/HCPCS: 80053; 82306; 85025; 85610; 93005

== ENCOUNTER 2024-12-03 05:32 | Day surgery (SDC) | payer MEDICARE ==
[2024-11-28 11:40] VITALS: BMI 36.9
[~2024-12-03 05:32] MED LIST changes: -DEXAMETHASONE SOD PHOSPHATE 4 MG/ML 1 ML VIAL IV ONE; -HEPARIN SODIUM,PORCINE 5,000 UNIT/ML 1 ML VIAL SQ PRN; -LACTATED RINGERS 1,000 ML IV SCH; -LIDOCAINE 1% (10MG/ML) FOR IV START INTRADERMA PRN; -MIDAZOLAM 2 MG/2 ML VIAL IV PRN; +TRANEXAMIC 1,000 MG/100ML-NACL 1,000 MG in SALINE 1 100ML.BAG IVPB PRN; -ceFAZolin 3 GM in SODIUM CHLORIDE 0.9% 100 ML IVPB PRN
[2024-12-03] MEDS ORDERED: fentaNYL (PF) 50 MCG/ML 2 ML AMP IVP PRN (06:07)
[2024-12-03] MEDS ORDERED: MIDAZOLAM 2 MG/2 ML VIAL IV PRN (06:07)
[2024-12-03] MEDS ORDERED: LIDOCAINE 1% (10MG/ML) FOR IV START INTRADERMA PRN (06:07)
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
[2024-12-03] MEDS: GABAPENTIN 300 MG CAP PO PRN (07:14)
[2024-12-03] MEDS: ACETAMINOPHEN TAB 500 MG TAB PO PRN (07:14)
[2024-12-03] MEDS: IV FLUID CONTINUATION 1,000 ML IV ONE ×2 (07:15→09:49)
[2024-12-03] MEDS: DEXAMETHASONE SOD PHOSPHATE 4 MG/ML 1 ML VIAL IV ONE (07:15)
[2024-12-03] MEDS: ONDANSETRON 4 MG/2 ML VIAL IVP PRN (07:15)
[2024-12-03] MEDS: LACTATED RINGERS 1,000 ML IV SCH (07:15)
[2024-12-03] MEDS: LACTATED RINGERS 1,000 ML IV ONE ×2 (07:15→09:28)
[2024-12-03 07:21] LABS: Glucose,Whole Blood 173 mg/dL (70-110)
[2024-12-03] MEDS ORDERED: KETAMINE HCL IN 0.9 % NACL 50 MG/5 ML SYRINGE ONE (07:30)
[2024-12-03] MEDS ORDERED: fentaNYL (PF) 50 MCG/ML 2 ML AMP ONE (07:30)
[2024-12-03] MEDS ORDERED: SUCCINYLCHOLINE CHLORIDE 200 MG/10 ML VIAL IV ONE (07:30)
[2024-12-03] MEDS ORDERED: MIDAZOLAM 2 MG/2 ML VIAL ONE (07:30)
[2024-12-03] MEDS ORDERED: LIDOCAINE 1% INJ 10MG/ML (20 ML MDV) ONE (07:30)
[2024-12-03] MEDS ORDERED: GLYCOPYRROLATE 0.2 MG/ML 2 ML VIAL ONE (07:30)
[2024-12-03] MEDS ORDERED: ROCURONIUM 10 MG/ML (5 ML VIAL) IV ONE (07:30)
[2024-12-03] MEDS ORDERED: PROPOFOL 10 MG/ML 20 ML VIAL IV ONE (07:30)
[2024-12-03] MEDS ORDERED: LIDOCAINE 4% LTA KIT (4 ML) TOPICAL ONE (07:30)
[2024-12-03] MEDS ORDERED: TRANEXAMIC 1,000 MG/100ML-NACL PREMIX BAG ONE (07:30)
[2024-12-03] MEDS ORDERED: NEOSTIGMINE 1 MG/ML 10 ML VIAL ONE (07:30)
[2024-12-03] MEDS: THROMBIN (BOVINE) 5,000 UNIT VIAL TOPICAL ONE (08:14)
--- NOTE | 2024-12-03 09:34 | P.OP ---
Date of Procedure: 12/03/24 Preoperative Diagnosis: 1.C4-5 HNP with stenosis 2.C5-7 HNP with stenosis 3.Upper extremity radiculopathy 4. Neck pain Postoperative Diagnosis: 1.C4-5 HNP with stenosis 2.C5-7 HNP with stenosis 3.Upper extremity radiculopathy 4. Neck pain Procedure(s) Performed: 1. C4-5 ANTERIOR CERVICAL ARTHRODESIS 2. C5-6 ANTERIOR CERVICAL ARTHRODESIS 3. ANTERIOR CERVICAL INSTRUMENTATION C4-6 4. INSERTION OF BIOMECHANICAL DEVICES C4-5 AND C5-6, CAGES, x2 USE OF IONM USE OF IO MICROSCOPE Implants: SARA CASCADIA CAGES 9MM OZARKE PLATE/SCREW 44/14 MAGNATOS, AUTOGRAFT Anesthesia: GETA Surgeon: Asaf Barker Valve Tester #1: Ashish Story (WAS PRESENT AND ASSISTED WITH ALL ASPECTS OF THE CASE FROM POSITION TO DRESSING PLACEMENT) Estimated Blood Loss (ml): 25 IV fluids (ml): 1,200 Urine output (ml): 0 Pathology: none sent Condition: stable Disposition: PACU Indications for Procedure: Mr. Elizabeth is presenting for evaluation of NECK PAIN WITH UE RADICULOPATHY AND WEAKNESS. It was my pleasure to have seen and examined Mr. Elizabeth. In our visit today we have had a chance to go over subjective complaints, physical examination findings and treatments including the natural course history without intervention and various interventional options. * The patients imaging demonstrates: XRay Cervical multiview (Lateral, Flexion, Extension, AP, Oblique) 6 view[facility]aken at [facility] on 11/09/23: * C4-5 grade I anterior listhesis unstable on F/E films C4-5, C5-6 spondylosis with dis dessicaiton, height loss, anterior and posterior osteophyte formation C6-7 spondylosis with collapse and facet arthrosis, moderate to severe No fracture No lesions C0-1 C1-2 stable. [facility]: IMPRESSION: Multilevel disc degeneration and uncovertebral joint hypertrophy. This is most pronounced at C5-C6 with mild central canal stenosis. Moderate bilateral neuroforaminal stenosis secondary to uncovertebral joint hypertrophy at this level. Tiny central disc protrusion with minimal central canal stenosis at C4- C5. * On physical exam, Mr. Elizabeth demonstrates: I have explained to the patient that as their condition progresses it will cause further neurological deficits and eventual paralysis. Based on the patients imaging, physical exam, and the rapid progression and disabling nature of their symptoms, at this time I recommend surgery in the form of a: C4-7 ANTERIOR CERVICAL DISCECOMTY AND FUSION. I discussed the risk and benefits of this procedure at length with Mr. Elizabeth. The patient agreed to considered pursuing the procedure abovementioned. Prior to surgery, she should follow up with her PCP (Cardio, ID, IM etc) for clearance. Questions were invited and answered, and the patient wishes to proceed as outlined below. 1.C4-5 HNP with stenosis 2.C5-7 HNP with stenosis 3.Upper extremity radiculopathy 4. Neck pain Currently, I am recommendin.C4-7 ANTERIOR CERVICAL DISCECOMTY AND FUSION Description of Procedure: C4-6 ACDF The patient was seen and examined in the preoperative area. All preoperative protocols were followed. Informed consent was obtained, risks and benefits of the procedure were discussed at length. Risks including bleeding infection damage to the surrounding tissue and risk of reoperation were discussed with the patient. Risk of anesthesia up to and including was discussed with the patient. These are outlined in the risk review. They were willing to accept these risks and all the risks of surgery. The patient was given a weight-based dose of antibiotics in the form of 2 g Ancef. The patient was seen and evaluated by the anesthesia team who deemed them fit for surgery. The site was marked, the patient was willing to proceed with the procedure. The patient was transferred to the operative suite by the Department of anesthesia. They were then drifted off to sleep by the department anesthesia and GETA was performed. The patient tolerated this well. Rajput catheter was placed by nursing staff, a-traumatically. Once confirmation of lines and ventilation the patient was transferred to a Supine Ronnie table very carefully. All bony prominences including wrists, elbows, axilla, chest, hips, and thighs, and feet were padded very well. Special attention was paid to the genitalia, and these were padded accordingly. SCDs were placed on bilateral lower extremities and were connected. Arms were well padded and placed at their side thumbs up. Once in position, again we confirmed good ventilation capabilities and that lines were running appropriately. The patients Cervical spine was then exposed. 1010s were placed outlining the incision site. Standard alcohol was used to clean the incision site and allowed to dry. C-arm was used to bio-bg the patient and confirm level for incision which was marked with a skin marker. Operative briefing was performed with all teams and everyone in agreement to proceed. The patient was then prepped and draped in a normal sterile fashion. Timeout was then performed, and all parties agreed with the procedure to be performed. Transverse skin incision was then made on the right side of the patient's neck 3 cm and dissection taken down to the platysma which was split transversely. Sub platysma flap was made, and an interval identified between SCM and medial structures. Omohyoid was visualized and protected. Blunt dissection taken down to the anterior cervical fascia which was identified. Blunt probe was then placed and lateral image taken which confirmed levels for operation. These levels were then marked with a bovi. Subperiosteal dissection of the longissimus muscles were then done over these levels identifying uncovertebral joints bilaterally. Retractor was then placed deep to these muscles and held in place with a bed arm. Starting at C5-6, Fairpoint pins were placed into C5 and C6 and gentle distraction taken out over the levels. Elham rongeur used to remove disc material. Operating microscope brought in for visualization. Complete discectomy performed at this level with curette, rongeur and pituitary. High speed demetrice used to remove osteophytes anteriorly and posteriorly until PLL was identified. 6-0 up curette then used to identify the canal and resect the PLL. 2-0 and 3-0 Kerrison used then to remove PLL and disc herniation and performed b/l foraminotomies. Once good decompression was accomplished, meticulous hemostasis was performed. Sizers were then placed under lateral fluoroscopy until the desired height and lordosis. Cage was then selected, packed with autograft and allograft and placed under lateral imaging. Once in good position it was tested and stable. Motors run before and after cage placement were stable. The wound was irrigated, and autograft placed lateral to the cage anteriorly for fusion. Fairpoint pin was then removed from C6 and placed into C4. Gentle distraction taken out over C4-5 now. Complete discectomy done at C4-5 as described including decompression, b/l foraminotomies and PLL resection. Burring of endplates was minimal, osteophytes removed as described. Spacers were then sized and placed under lateral imaging. Cage selected, packed with graft and placed under lateral images. Once in position, meticulous hemostasis performed, and motors remained stable before and after cage placement. AP image confirmed good placement of cages. Wound was irrigated. A separate, non-integrated plate was then selected and sized under lateral image. The plate was then placed with screws. Fixed screws drilled into C6 b/l and screws placed. Then into C5 and finally C4 with variable screws. All locking mechanisms were set, and all screws had good purchase. Final AP and lateral images taken confirmed good placement of hardware and good reduction and yazidism of height. The wound was then irrigated copiously with NSS. Surgicel placed deep in the wound. A deep drain placed out a separate incision and sewed into place. Layered closure then performed with 3-0 Vicryl in the p latysma and subQ tissue. 4-0 Strata fix in the subcuticular tissue. The wound was then cleaned, and dried and skin glue placed. Once glue dried an Opifoam was placed. The patient was then transferred back to their hospital bed a-traumatically. The drain continued to hold suction. They were placed in a soft collar. They were then awakened by the department of anesthesia having tolerated the procedure well without complications.
--- NOTE | 2024-12-03 09:39 | XR ---
EXAMINATION TYPE: XR cervical spine limited, OK guidance operating room Intraoperative/procedural flu oroscopic services were provided. CLINICAL INDICATION:Male, 54 years old with history of C4-C7 Fusion; , [facility] FINDINGS: Postsurgical changes from C4 through C7 anterior cervical fusion with intervertebral disc cage. Hardw are appears intact with appropriate alignment. No radiographic evidence for complication. Total fluoroscopy time is 21.5 seconds. DAP: 0.3236 Gycm2 Please see the operative/procedural note for further details. [facility], , 12/03/2024 9:37 AM
[2024-12-03] MEDS ORDERED: MAGNESIUM HYDROXIDE 2,400 MG/30 ML CUP PO PRN (10:14)
[2024-12-03] MEDS ORDERED: SENNOSIDES-DOCUSATE SODIUM 1 EACH TAB PO PRN (10:14)
[2024-12-03] MEDS ORDERED: HYDROmorphone 0.5 MG/0.5 ML SYRINGE IVP PRN (10:14)
[2024-12-03] MEDS ORDERED: ONDANSETRON 4 MG/2 ML VIAL IVP PRN (10:14)
[2024-12-03] MEDS: HYDROmorphone 0.5 MG/0.5 ML SYRINGE IVP PRN (10:27)
[2024-12-03] MEDS: ACETAMINOPHEN TAB 325 MG TAB PO SCH (16:11)
[2024-12-03] MEDS: ONDANSETRON 4 MG/2 ML VIAL IVP ONE (16:11)
[2024-12-03] MEDS ORDERED: DEXTROSE 50% SYRINGE 50 ML IVP PRN ×2 (16:30)
[2024-12-03] MEDS: GABAPENTIN 300 MG CAP PO SCH (16:40)
[2024-12-03] MEDS: oxyCODONE-APAP 7.5-325MG 1 EACH TAB PO PRN (16:40)
[2024-12-03] MEDS: CYCLOBENZAPRINE 5 MG TAB PO PRN (16:40)
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
[2024-12-03 17:51] LABS: Glucose,Whole Blood 140 mg/dL (70-110)
[2024-12-03] MEDS: INSULIN LISPRO (HumaLOG) 100 UNIT/ML 10 mL VL SQ SCH (18:05)
[2024-12-03 20:41] LABS: Glucose,Whole Blood 179 mg/dL (70-110)
[2024-12-04] MEDS: HYDROmorphone 1 MG/ML 1 ML SYRINGE IVP PRN (03:11)
[2024-12-04 06:10] LABS: Glucose,Whole Blood 185 mg/dL (70-110)
[2024-12-04] MEDS: HYDROcodone/APAP 10-325MG 1 EACH TAB PO PRN (06:23)
[2024-12-04] MEDS: PANTOPRAZOLE 40 MG TABLET PO SCH (06:23)
--- NOTE | 2024-12-04 07:02 | CT ---
EXAMINATION TYPE: CT cervical spine wo con CT DLP: 423.8 mGycm, Automated exposure control for dose reduction was used. DATE OF EXAM: 12/03/2024 10:31 PM COMPARISON: Fluoroscopic images of the cervical spine 12/03/2024, CT cervical spine 11/06/2024, MR cervi [place] spine 06/25/2024. CLINICAL INDICATION:Male, 54 years old with history of s/p C4-C6 ACDF; PHH, s/p c4-c6 ACDF, pain TECHNIQUE: Axial CT images from the skull base to the inferior aspect of T2 we obtained without intra venous contrast. Coronal and sagittal reformatted images were also reviewed. FINDINGS: Postsurgical changes from anterior cervical disc fusion from C4 through C6 with disc fusion cages gayathir dware appears intact with appropriate alignment. There is expected surrounding gas and edema within t he prevertebral space extending into the right neck. No acute fracture or dislocation. Unchanged grad e 1 anterolisthesis of C3 on C4. No evidence for significant spinal canal stenosis. Multilevel mild neural foraminal stenosis secondar y to facet arthropathy and uncovertebral joint hypertrophy. No lymphadenopathy. No organized fluid collection. Minimal atherosclerotic calcification of the bilat eral carotid bulbs. Airway is patent. IMPRESSION: Post surgical changes from ACDF C4-C6. Hardware appears intact with appropriate alignment. No CT evid ence for complication. [facility], , 12/04/2024 6:59 AM
[2024-12-04] MEDS: ATORVASTATIN 10 MG TAB PO SCH (07:41)
[2024-12-04 08:11] VITALS: BP 113/70; PULSE 83; RESP 17; TEMP 97.9
[2024-12-04 08:34] LABS: Basophils # (A) 0.03 X 10*3/uL (0.00-0.10); Basophils % (A) 0.3 %; Eosinophils # (A) 0.01 X 10*3/uL (0.04-0.35); Eosinophils % (A) 0.1 %; HCT 46.6 % (39.6-50.0); HGB 15.3 g/dL (13.0-17.0); Immature Grans, Automated 0.30 %; Lymphocytes # (A) 1.44 X 10*3/uL (0.90-5.00); Lymphocytes % (A) 12.3 %; MCH 29.0 pg (27.0-32.0); MCHC 32.8 g/dL (32.0-37.0); MCV 88.4 FL (80.0-97.0); Monocytes # (A) 1.07 X 10*3/uL (0.20-1.00); Monocytes % (A) 9.1 %; NRBC Per 100 WBC 0 X 10*3/uL (0.00-0.01); Neutrophils # (A) 9.12 X 10*3/uL (1.80-7.70); Neutrophils % (A) 77.9 %; Platelet Count 199 X 10*3/uL (140-440); RBC 5.27 X 10*6/uL (4.40-5.60); RDW 12.2 % (11.5-14.5); WBC 11.71 X 10*3/uL (4.50-10.00)
--- NOTE | 2024-12-04 08:44 | P.PN ---
Subjective Progress Note Date: 12/04/24 Principal diagnosis: 1.C4-5 HNP with stenosis 2.C5-7 HNP with stenosis 3.Upper extremity radiculopathy 4. Neck pain Patient seen and examined this morning. Patient is sitting at bedside. He does report that his pain is managed on current regimen. Surgical incision to the anterior cervical spine, dressing is clean dry and intact. Soft cervical collar is in place. Patient states that he has been ambulatory within room and tolerating activity well. He does report that he is comfortable with discharge home later today. No acute concerns. Objective - Vital Signs Vital signs: Vital Signs Temp 97.9 F 12/04/24 07:22 Pulse 83 12/04/24 07:22 Resp 17 12/04/24 07:22 BP 113/70 12/04/24 07:22 Pulse Ox 94 L 12/04/24 07:22 FiO2 Intake & Output 12/03/24 12/04/24 12/04/24 18:59 06:59 18:59 Intake Total 1200 1500 Output Total 2450 Balance -1250 1500 Weight 112.6 kg Intake: IV 1150 Intake, IV Titration 50 Amount ceFAZolin 2 gm In Sodium 50 Chloride 0.9% 50 ml @ 100 mls/hr IVPB Q8HR [facility] Rx# :[id number] Oral 1500 Output: Urine 2425 Estimated Blood Loss 25 Other: Voiding Method Toilet # Voids 3 - Exam Physical Examination General: The patient is awake and alert, in no acute distress. Skin: Skin is warm and dry with no obvious rashes or lesions. Surgical incision to the anterior cervical spine, dressing is clean dry and intact. Eye: Pupils are equal, round and reactive to light, extra-ocular movements are intact; there is normal conjunctiva bilaterally. Neck: The neck is supple, there is mild tenderness around the incision site. Soft cervical collar is intact. Respiratory: Respirations are non-labored. Gastrointestinal: Soft, non-distended, non-tender abdomen. Back: There is no tenderness to palpation in the midline, paralumbar, parathoracic or buttocks region. There is no obvious deformity. Musculoskeletal: ROM spine is limited secondary to pain and stiffness from surgical procedure. Right: Shoulder abduction 5/5, elbow flexors 5/5, wrist dorsiflexors 5/5. finger abductor 5/5, cabinet worker 5/5, hip flexor 5/5, knee flexor 5/5, ankle dorsiflexor 5/5, ankle plantarflexion 5/5 and extensor hallucis 5/5 Left: Shoulder abduction 5/5, elbow flexors 5/5, wrist dorsiflexors 5/5. finger abductor 5/5, cabinet worker 5/5, hip flexor 5/5, knee flexor 5/5, ankle dorsiflexor 5/5, ankle plantarflexion 5/5 and extensor hallucis 5/5. Neurological: CN 2-12 intact. There are no obvious motor or sensory deficits. Movement and coordination equal and intact. Sensory exam to light touch intact C5-T1 and intact from L2-S1. Reflexes 2/4 in bilateral upper and lower extremities. Negative Hoffmans, babinski, and clonus signs. Psychiatric: Cooperative, appropriate mood & affect, normal judgment. - Labs CBC & Chem 7: 12/04/24 02:46 Labs: Abnormal Lab Results - Last 24 Hours (Table) 12/03/24 12/03/24 12/04/24 Range/Units 17:50 20:40 02:46 WBC (4.50-10.00) X 10*3/uL Neutrophils # (1.80-7.70) X 10*3/uL Monocytes # (0.20-1.00) X 10*3/uL Eosinophils # (0.04-0.35) X 10*3/uL POC Glucose (mg/dL) 140 H 179 H (70-110) mg/dL Hemoglobin A1c 7.4 H (<=6.0) % 12/04/24 12/04/24 Range/Units 02:46 06:09 WBC 11.71 H (4.50-10.00) X 10*3/uL Neutrophils # 9.12 H (1.80-7.70) X 10*3/uL Monocytes # 1.07 H (0.20-1.00) X 10*3/uL Eosinophils # 0.01 L (0.04-0.35) X 10*3/uL POC Glucose (mg/dL) 185 H (70-110) mg/dL Hemoglobin A1c (<=6.0) % Assessment and Plan Assessment: Postop day 1: C4-C6 ACDF Plan: -Appreciate strategy consultant and team management. -Activity: Ambulate QID, OOB all meals, up and about, limit lifting bending twisting to less than 5 lbs. Use walker or cane if needed for stability. -Daily PT/OT, increase ambulation strength and balance. - Soft cervical collar on at all times, may remove for showers. -Pain control: Adequate at this time -Meds: reviewed -GI ppx: senna, Miralax -DVT PPX: Aspirin 81mg daily -Hygiene: Maintain incision clean and dry. May change dressing as needed, please document in notes if performed. -Encourage IS 10x/hr -Dispo: Anticipate discharge home with homecare. *I reviewed and discussed this case with my attending Dr. Barker, whom has reviewed this chart and films and is in agreement with assessment and plan of care as outlined above. I have personally seen and examined the patient, performed the documentation and the assessment and plan as written. Number of minutes spent on the visit: 20m.
[2024-12-04 08:45] LABS: BUN/Creat Ratio 21.44 Ratio (12.00-20.00); Blood Urea Nitrogen 19.3 mg/dL (9.0-27.0); Glucose 177 mg/dL (70-110)
[2024-12-04 08:46] LABS: Anion Gap 11.00 mmol/L (4.00-12.00); Calcium 8.9 mg/dL (8.7-10.3); Carbon Dioxide 24.0 mmol/L (21.6-31.8); Chloride 101 mmol/L (96-109); Potassium 4.3 mmol/L (3.5-5.5); Sodium 136 mmol/L (135-145)
--- NOTE | 2024-12-04 08:54 | P.DS ---
Providers Date of admission: 12/03/24 Expected date of discharge: 12/04/24 Attending physician: Asaf Barker DO Consults: 12/03/24 15:42 Consult Physician Routine Consulting Provider: Saw Mathias Consult Reason/Comments: medical managment Do you want consulting provider notified?: Yes Primary care physician: Yonatan Dave MD Hospital Course: Hospital Course: The patient was evaluated preoperatively and found to have the diagnosis of C4- C6 spondylosis with stenosis. They underwent appropriate preoperative care and were willing to undergo the intended procedure. They underwent a successful C6 ACDF, were recovered appropriately and sent to the floor. While on the floor they worked with physical therapy, occupational therapy and nursing to enhance their recovery experience. Their pain was well controlled through their stay and they were started on appropriate medications, DVT ppx modalities, activity and dietary needs. Daily labs were monitored closely, and transfusions were only used when necessary. Medicine as well as other consulting services have made their input and have helped with our team approach and multidisciplinary care. PT milestones have been met and passed and they have made the recommendation of home for this patient and treating providers agree with this care path. The patient will be discharged home with appropriate medications, instructions and follow-up information and in stable condition. Patient Condition at Discharge: Good Plan - Discharge Summary Discharge Rx Participant: No New Discharge Prescriptions: New cefaDROXiL [Duricef] 500 mg PO Q12HR #10 cap Cyclobenzaprine [Flexeril] 5 mg PO TID PRN #40 tablet PRN Reason: Muscle Spasm Gabapentin [Neurontin] 300 mg PO TID #90 cap oxyCODONE HCL/ACETAMINOPHEN [Percocet 7.5-325 mg] 1 tab PO Q4HR PRN #40 tab PRN Reason: Pain Sennosides/Docusate Sodium [Senna Plus 8.6-50 mg Tablet] 2 each PO DAILY PRN #20 tab PRN Reason: Constipation No Action lisinopriL [Zestril] 5 mg PO HS Atorvastatin [Lipitor] 10 mg PO DAILY Empagliflozin [Jardiance] 25 mg PO HS Semaglutide [Ozempic] 1 mg SQ WARREN EPINEPHrine (Auto Inject) [Epipen] 0.3 mg IM ONCE PRN PRN Reason: Anaphylaxis Multivitamins, Thera [Multivitamin (formulary)] 1 tab PO DAILY Omeprazole [PriLOSEC] 20 mg PO AC-BID #60 cap Ibuprofen [Motrin] 800 mg PO DIRECTED PRN PRN Reason: Pain HYDROcodone/APAP 10-325MG [[place] 10-325] 1 tab PO Q6HR PRN #28 tab PRN Reason: Pain Discharge Medication List lisinopriL [Zestril] 5 mg PO HS 06/07/17 [History] Atorvastatin [Lipitor] 10 mg PO DAILY 06/10/20 [History] Empagliflozin [Jardiance] 25 mg PO HS 06/10/20 [History] EPINEPHrine (Auto Inject) [Epipen] 0.3 mg IM ONCE PRN 06/28/21 [History] Multivitamins, Thera [Multivitamin (formulary)] 1 tab PO DAILY 06/28/21 [History ] Omeprazole [PriLOSEC] 20 mg PO AC-BID #60 cap 06/29/21 [Rx] Ibuprofen [Motrin] 800 mg PO DIRECTED PRN 04/22/23 [History] Semaglutide [Ozempic] 1 mg SQ WARREN 04/22/23 [History] HYDROcodone/APAP 10-325MG [[place] 10-325] 1 tab PO Q6HR PRN #28 tab 04/28/23 [Rx] Cyclobenzaprine [Flexeril] 5 mg PO TID PRN #40 tablet 12/04/24 [Rx] Gabapentin [Neurontin] 300 mg PO TID #90 cap 12/04/24 [Rx] Sennosides/Docusate Sodium [Senna Plus 8.6-50 mg Tablet] 2 each PO DAILY PRN #20 tab 12/04/24 [Rx] cefaDROXiL [Duricef] 500 mg PO Q12HR #10 cap 12/04/24 [Rx] oxyCODONE HCL/ACETAMINOPHEN [Percocet 7.5-325 mg] 1 tab PO Q4HR PRN #40 tab 12/04/24 [Rx] Follow up Appointment(s)/Referral(s): Yonatan Dave MD [Primary Care Provider] - 1 Week Asaf Barker DO [Doctor of Osteopathic Medicine] - 2 Weeks Activity/Diet/Wound Care/Special Instructions: Spine Discharge and Recovery Instructions Date of Surgery: 12/03/2024 Diagnosis: C4-C6 spondylosis with stenosis Procedure: C4-C6 ACDF Medications: See medication list All medication refills should be obtained through your primary care doctor or your clinic spine surgeon. Please discuss prescription refills at your follow up appointment. Do not call the hospital for medication refills. Activity: Encourage ambulation with assist of walker, Up and about 6-8x daily PT/OT daily work on balance, strength and mobility Up in chair with all meals Shower daily Brace: Use brace when up and about, do not wear in bed or shower Dressing: Leave your dressing in place for a total of 3 days post operatively. Then you may remove your dressing and leave open to air. Keep the area clean and if not able to keep area clean, then cover with sterile gauze and tape. Showering: You may shower 3 days after your procedure allowing soap and water to run over incision. Do not scrub. Do not soak. Blot dry. Follow up: Please confirm a follow up appointment with your surgeon 2 weeks post operatively. Please make an appointment to follow up with your PCP in 1-2 weeks after surgery for evaluation '3 phase, 3-week plan' POST OP WEEKS 1-3 1. Lifting/carrying/pushing/pulling limited to less than 5 pounds. 2. Do not sit for longer than 15 minutes at one time. Get up and walk around. Prolonged sitting is NOT advised. If you lay down, see if you can tolerate laying down on you front (belly side) 3. Walk for periods of 15 minutes = 1 mile but no longer; do it multiple times times each day. 4. Ice your low back after activity. POST OP WEEKS 3-6 1. Lifting limited to less than 20 pounds. 2. Do not sit for longer than 30 minutes at a time. Frequently change positions. Use a sit-to stand workstation or take frequent breaks from sitting if you have returned to work. 3. Walk for 30 minutes each day. If possible, do these three or more times a day POST OP WEEKS 6+ At your 6-week appointment we will give you a physical therapy referral to focus on a core stabilization and strengthening program. You should also work on leg & buttock strengthening, hamstring & quadriceps stretching, and continue a low impact aerobic activity program such as swimming, walking, or riding a stationary bicycle. During the initial 6 weeks after your surgery, you are at the highest risk of re-injuring your spine. You should generally avoid BLT's (bending, lifting and twisting combination motions) and follow the above guidelines to reduce the chance of reinjury. You can anticipate post op appointments in our office at approximately 3 weeks and 6 weeks after your surgery. INCISION CARE: If your incision is not draining you do NOT need to cover it with a dressing. Keep your incision clean, dry and intact. In most cases, we apply skin glue, renuka or sutures to the incision at the time of surgery. This will be like a crust or have the appearance of a scab and will fall off in time on its own. The stitches or renuka need to be removed at 3 weeks post op appointment. You may begin to shower 3 days after surgery (this allows the glue to aldana well). However, please avoid scrubbing the incision site or peeling off any of the skin glue. This will ensure optimal healing of your incision. Also, during this time avoid soaking the incision area in water - this includes swimming pools, hot tubs or baths. No ointments, lotions or oils on the incision until your surgeon allows. Leave renuka, sutures or glue in place. Neurological dysfunction that comes on suddenly can also be a sign of a stroke. Below some common symptoms of a stroke are listed: B - balance difficulty such as sudden onset walking or leaning to one side - NEW E - eye problem such as sudden double vision or trouble seeing on one side - NEW F - Facial weakness or numbness on one side - NEW A - Arm or leg weakness or numbness on one side - NEW S - Slurred speech or difficulty with word finding - NEW T - Time is BRAIN! Call 911 as soon as you recognize these symptoms Diet: Consume a regular diet rich in vegetables and lean protein such as chicken or fish. You should consume in a ratio of approximately 20% fats|40% carbohydrates|40%protein. Vegetables, sweet potatoes, brown rice or quinoa are examples of good carbohydrates. Chips, white bread, cookies and sweets/sugar are examples of bad carbohydrates. Limit your bad carbs, go wild with good carbs. "Life's Simple 7" Guidelines as per [place] [employer] These will help you reclaim your life after surgery and terrazzo mechanic helper in your recovery, keeping in mind your restrictions. (1) Get Active. Physical activity can help people lose weight, control high blood pressure and cholesterol, feel emotionally better, and sleep better. (2) Control Cholesterol. Avoid a diet high in saturated fat, trans fat, & cholesterol. Limit whole milk & cream, ice cream, butter, egg yolks, processed meats (like sausage and hot dogs), and fatty meats. Choose healthy foods that are low in saturated fat, trans fat and cholesterol which include: Fruits and vegetables, fiber rich grain products (like whole grain pasta and brown rice), lean meat such as chicken, fish, nuts, seeds, and legumes. (3) Eat Better. Eat small portions. Shop at the grocery with a list and do not stray from it. Tips for a healthy diet include: Limit sodium intake to less than 1500mg daily, avoid prepackaged, processed, and fast foods, choose a diet rich in fruits, vegetables, and whole grain, high fiber foods, and limit saturated & cholesterol in your diet. (4) Manage Blood Pressure. If you have high blood pressure, you should have a cuff at home so that you can check your blood pressure regularly. Be sure you have a good cuff. An arm one is generally better than a wrist one. Bring the cuff to a doctor's appointment to validate that the measurements that your cuff are taking are accurate. Take your blood pressure twice daily when you are sitting down and relaxing. Record the numbers in a log and bring this log with you to your doctors' appointments. (5) Lose Weight if your BMI is above 25. A healthy BMI is between 19-25. To calculate Your BMI, you may use a Standard BMI Calculator on the NIH BMI website: <www.nhlbi.nih.gov/guidelines/obesity/BMI/bmicalc.htm>. Weigh oneself daily. If you are overweight, set a goal to lose weight. A pound a week loss if needed is a good target. (6) Reduce Blood Sugar. Limit foods and liquids with "added sugars." (Added sugars include sucrose, fructose, glucose, maltose, dextrose, high fructose corn syrup, corn syrup, concentrated fruit juice and honey). (7) Stop Smoking. If you smoke, quitting smoking is one of the best things that you can do for your health. Smoking increases your risk of heart attack, stroke, and peripheral vascular disease, which is a build-up of plaque in your arteries. Please discard all the cigarettes and lighters in your house. Have a plan for what you will do when you have the urge to smoke. Direct and second- hand smoke shortens your life as well as the lives of your family, friends and others around you. For your health and the health of those around you, please consider quitting! Proper Bending Body Mechanics: Maintain a wide stance with one foot slightly in front of the other. Keep your back straight. Bend utilizing the strength in your hips and knees. Do not bend at the waist. Maintain the lifted object at your waist-level close to your body. Avoid lifting weight that causes immediately pain or pain anywhere in the body afterwards. Smoking/Nicotine If there was ever one thing that you could do to increase your overall health, decrease your risk of cardiovascular problems by about 39% the second you make the choice, it is to STOP SMOKING. Your body's most instant gratification is t he second you stop smoking. We have all heard the studies, read the articles but it is true, smoking is extremely bad for your overall health, and moreover it is detrimental to your bone health. Nicotine, IN ANY FORM, kills bone cells, prevents your body from healing fractures, and significantly prolongs healing after surgery. In spine surgery specifically, it increases your risk of not healing your bones to create a fusion and increases your risk of having a revision surgery due to this up to 60%. I know it is hard. I know it feels impossible. But there are ways. Take co ntrol of your life. We are here to help you through it. And when you are ready, ask us and we can direct you to help if you desire. Use the START Plan to Quit Smoking (please visit the Helpguide.org website listed below for more information): S = Set a quit date. Choose a date within the next 2 weeks, so you have enough time to prepare without losing your motivation to quit. If you mainly smoke at work, quit on the weekend, so you have a few days to adjust to the change. T = Tell family, friends, and co-workers that you plan to quit. Let your friends and family in on your plan to quit smoking and tell them you need their support and encouragement to stop. Look for a quit lucie who wants to stop smoking as well. You can help each other get through the rough times. A = Anticipate and plan for the challenges you'll face while quitting. Most people who begin smoking again do so within the first 3 months. You can help yourself make it through by preparing ahead for common challenges, such as nicotine withdrawal and cigarette cravings. R = Remove cigarettes and other tobacco products from your home, car, and work. Throw away all your cigarettes (no emergency pack!), lighters, ashtrays, and matches. Wash your clothes and freshen up anything that smells like smoke. Shampoo your car, clean your drapes and carpet, and steam your furniture. T = Talk to your doctor about getting help to quit. Your doctor can prescribe medication to help with withdrawal and suggest other alternatives. If you can't see a doctor, you can get many products over the counter at your local pharmacy or grocery store, including the nicotine patch, nicotine lozenges, and nicotine gum. Resources for Quitting Smoking: <https://www.[place].gov/documents/[facility]/Virgilio t_Tobacco_Resources_for_patients_313480_7.pdf> Supplementation: Take recommended dosages of Vitamin D and Calcium to help fortify your bones and help them to heal. See your health maintenance packet for dosages and recommended levels. DVT/VTE prophylaxis: You will be given compression stockings from the hospital. Wear these daily for the first two weeks after surgery. You may take them off at night. You may be prescribed a medication to help thin your blood. Take this as directed. If you are not prescribed this medication, early and frequent ambulation has been shown to be the best prophylaxis to deep vein thrombosis and sequelae related to this event. Discharge Disposition: HOME SELF-CARE
--- NOTE | 2024-12-04 13:19 | P.PN ---
Subjective Progress Note Date: 12/04/24 Principal diagnosis: Patient reports doing well today. Has some increased neck pain but not severe. Is eating and getting up to use the restroom. Amenable to plan for discharge. Objective - Vital Signs Vital signs: Vital Signs Temp 97.9 F 12/04/24 07:22 Pulse 83 12/04/24 07:22 Resp 17 12/04/24 07:22 BP 113/70 12/04/24 07:22 Pulse Ox 94 L 12/04/24 07:22 FiO2 Intake & Output 12/03/24 12/04/24 12/04/24 18:59 06:59 18:59 Intake Total 1200 1500 Output Total 2450 Balance -1250 1500 Weight 112.6 kg Intake: IV 1150 Intake, IV Titration 50 Amount ceFAZolin 2 gm In Sodium 50 Chloride 0.9% 50 ml @ 100 mls/hr IVPB Q8HR [facility] Rx# :[id number] Oral 1500 Output: Urine 2425 Estimated Blood Loss 25 Other: Voiding Method Toilet # Voids 3 2 - Exam General: non toxic, no distress, appears at stated age, normal weight Derm: no unusual rashes/lesions, warm Head: atraumatic, normocephalic, symmetric Eyes: EOMI, anicteric sclera, pupils equal round reactive to light ENT: Nose and ears atraumatic Neck: Cervical collar in place. Unable to visualize neck. Mouth: no lip lesion, mucus membranes moist Cardiovascular: S1S2 reg, no murmur, positive dorsalis pedis pulse bilateral, no edema Lungs: CTA bilateral, no rhonchi, no rales, no accessory muscle use Abdominal: soft, nontender to palpation, no guarding Ext: muscle strength 5 out of 5 in all 4 extremities grossly, no gross muscle atrophy Neuro: CN II-XI grossly intact, no gross focal neuro deficits Psych: Alert, oriented to person, place, and time - Labs CBC & Chem 7: 12/04/24 02:46 12/04/24 02:46 Labs: Abnormal Lab Results - Last 24 Hours (Table) 12/03/24 12/03/24 12/04/24 Range/Units 17:50 20:40 02:46 WBC (4.50-10.00) X 10*3/uL Neutrophils # (1.80-7.70) X 10*3/uL Monocytes # (0.20-1.00) X 10*3/uL Eosinophils # (0.04-0.35) X 10*3/uL BUN/Creatinine Ratio (12.00-20.00) Ratio Glucose (70-110) mg/dL POC Glucose (mg/dL) 140 H 179 H (70-110) mg/dL Hemoglobin A1c 7.4 H (<=6.0) % 12/04/24 12/04/24 12/04/24 Range/Units 02:46 02:46 06:09 WBC 11.71 H (4.50-10.00) X 10*3/uL Neutrophils # 9.12 H (1.80-7.70) X 10*3/uL Monocytes # 1.07 H (0.20-1.00) X 10*3/uL Eosinophils # 0.01 L (0.04-0.35) X 10*3/uL BUN/Creatinine Ratio 21.44 H (12.00-20.00) Ratio Glucose 177 H (70-110) mg/dL POC Glucose (mg/dL) 185 H (70-110) mg/dL Hemoglobin A1c (<=6.0) % Assessment and Plan Assessment: Labs reviewed today: WBC 11.71, Hgb 15.3, Creatinine 0.9, Glucose 177, Hemoglobin A1c 7.4 1. Type 2 diabetes melitis - Restart home Ozempic and Jardiance. - Patients blood sugars while admitted were controlled on sliding scale insulin 2. Hypertension - Continue home lisinopril 5 daily. 3. Hx of hypercholesterolemia - Continue home atorvastatin 10 daily 4. GERD - Continue omeprazole 4. Spinal stenosis status post ACDF Leukocytosis, anticipated outcome of surgery - Deferred pain management to primary team - Antibiotics per primary Patient is medically optimized for discharge Fredrick Abernathy MD PGY-1 TY Dictation was produced using [employer] dictation software. please excuse any grammatical, word or spelling errors. I have seen and evaluated the patient today. Discussed with the resident and agree with the residents finding and plan as documented in the resident's note. Changes highlighted in blue font.
== END 2024-12-04 11:03 | disposition home or self-care (01) ==
LOC: OR 05:32 → 4SSUR 14:56 → OR 12-04 11:03
PROVIDERS: ATTEND Orthopaedic Surgery
DX: M48.02 Spinal stenosis, cervical region (principal); M47.22 Other spondylosis with radiculopathy, cervical region; M50.121 Cervical disc disorder at C4-C5 level with radiculopathy; M25.78 Osteophyte, vertebrae; M43.12 Spondylolisthesis, cervical region; K21.9 Gastro-esophageal reflux disease without esophagitis; I10 Essential (primary) hypertension; E78.00 Pure hypercholesterolemia, unspecified; E11.9 Type 2 diabetes mellitus without complications; E66.9 Obesity, unspecified; F17.210 Nicotine dependence, cigarettes, uncomplicated; G47.30 Sleep apnea, unspecified; Z98.1 Arthrodesis status; Z68.25 Body mass index [BMI] 25.0-25.9, adult; Z90.89 Acquired absence of other organs; Z82.49 Family history of ischemic heart disease and other diseases of the circulatory system; Z01.818 Encounter for other preprocedural examination; Z79.84 Long term (current) use of oral hypoglycemic drugs; Z79.82 Long term (current) use of aspirin; Z79.899 Other long term (current) drug therapy
CPT/HCPCS: 72040; 72125; 22551; 22552; 22845; 22853; 20930; 20936; J1100; J0690; J2405; J1171; 80048; 83036; 85025